=== PATIENT | male | born 1965 | race Caucasian/White ===

== ENCOUNTER 2016-09-19 07:25 | Day surgery (SDC) | payer OTHER ==
[~2016-09-19] VITALS: Ht 185.4 cm; Wt 147.7 kg
[~2016-09-19 07:25] MED LIST: ALLOPURINOL100 MG PO; BACTRIM,SEPT1 TABLET PO; BYSTOLIC20 MG PO; CALCIUM ACETAT667 M2 PO; FOLBEE PLUS TABL5 MG PO; NIFEDIPINE ER60 MG PO; OMEPRAZOLE20 M2 PO; PLAVIX75 MG PO; TUMS DUAL ACTI1 EACH PO; TYLENOL REGULA325 MG PO
[2016-09-19 10:19] LABS: METH RESISTANT S AUREUS PCR NEGATIVE (NEGATIVE); PROBE CHECK PASS; SPECIMEN PROCESSING CONTROL PASS
== END 2016-09-19 10:25 | disposition home or self-care (01) ==
LOC: CATH 07:25
PROVIDERS: Surgery
DX: T82.858A Stenosis of other vascular prosthetic devices, implants and grafts, initial encounter (principal); Y83.2 Surgical operation with anastomosis, bypass or graft as the cause of abnormal reaction of the patient, or of later complication, without mention of misadventure at the time of the procedure; I12.0 Hypertensive chronic kidney disease with stage 5 chronic kidney disease or end stage renal disease; N18.6 End stage renal disease; Z99.2 Dependence on renal dialysis; M19.90 Unspecified osteoarthritis, unspecified site; E66.01 Morbid (severe) obesity due to excess calories; Z68.41 Body mass index [BMI] 40.0-44.9, adult; F17.200 Nicotine dependence, unspecified, uncomplicated; Z88.1 Allergy status to other antibiotic agents; Z91.041 Radiographic dye allergy status; Z91.09 Other allergy status, other than to drugs and biological substances; Z79.02 Long term (current) use of antithrombotics/antiplatelets
CPT/HCPCS: 87641; C1725; C1769; C1894; J1200; J1644; J2250; J2765; J2930; J3010

== ENCOUNTER 2017-12-25 07:47 | Day surgery (SDC) | payer OTHER ==
[~2017-12-25] VITALS: Ht 185.4 cm; Wt 148.0 kg
[~2017-12-25 07:47] MED LIST changes: +GLUCOSAMINE &1 EAC1 PO; +RENA-VITE RX T1 EACH PO; +TYLENOL ARTHRI650 MG PO
== END 2017-12-25 10:20 | disposition home or self-care (01) ==
LOC: CATH 07:47
DX: T82.858A Stenosis of other vascular prosthetic devices, implants and grafts, initial encounter (principal); Y83.2 Surgical operation with anastomosis, bypass or graft as the cause of abnormal reaction of the patient, or of later complication, without mention of misadventure at the time of the procedure; I12.0 Hypertensive chronic kidney disease with stage 5 chronic kidney disease or end stage renal disease; F17.200 Nicotine dependence, unspecified, uncomplicated; N18.6 End stage renal disease; Z99.2 Dependence on renal dialysis; Z79.01 Long term (current) use of anticoagulants; Z79.02 Long term (current) use of antithrombotics/antiplatelets
CPT/HCPCS: 87641; C1725; C1769; C1894; J1200; J1644; J2765; J2930; S0020